=== PATIENT | female | born 1940 | race Caucasian/White ===

== ENCOUNTER 2018-05-09 10:28 | Emergency (ER) | payer MEDICARE ==
[~2018-05-09 10:28] MED LIST: AMLO-96 PO; AMLO2.5T75 PO; BENZ100C26 PO; BLOO-1322 MC; BLOO-1326 MC; BLOO1EAC MC; CHOL200022 PO; CLA500 PO; ESOM20CA31 PO; LANC-1149 MC; METR-1 PO; NO RTN MEDS; PENC5CRE TP; [UNRECOGNIZED DRUG - CODE] MC
--- NOTE | 2018-05-09 10:32 | ER Report ---
History and Physical Time Seen By MD: 10:33 HPI/ROS CHIEF COMPLAINT: Not feeling well HISTORY OF PRESENT ILLNESS: Patient is a 77-year-old female who presents to the emergency department with multiple complaints including just not feeling well, positional dyspnea, episodic palpitations no real chest pain or pressure. She reports some balance problems but no chest dizziness. It is unclear how long these symptoms have been present. Currently she has no chest pain or pressure. She does not feel palpitations now but they occur they only last for 1-2 minutes and then resolve spontaneously. Patient denies any headaches. She denies any prior history of cardiac disease or stroke. She denies any abdominal pain, nausea or vomiting. She denies any diarrhea. Patient denies any palliative or provoking features, however she does state that when the palpitations start if she arches her back this seems to make the symptoms better. Patient states that she has been staying with her sister over the past 2 weeks because she is concerned about dust in her trailer and that it might be affecting her causing her symptoms. REVIEW OF SYSTEMS: Constitutional: No fever, no chills. Eyes: No discharge. ENT: No sore throat. Cardiovascular: Palpitations Respiratory: No cough, positional shortness of breath Gastrointestinal: No abdominal pain, no vomiting. Genitourinary: No hematuria. Musculoskeletal: No back pain. Skin: No rashes. Neurological: No headache. Allergies: Coded Allergies: Penicillins (Verified Allergy, Mild, 01/16/11) peanut (Unverified Allergy, Mild, 03/11/15) sorbitol (Verified Allergy, Mild, 01/16/11) trimethoprim (Unverified Allergy, Mild, dizziness, nausea, 10/06/16) guaifenesin (Verified Allergy, Unknown, 05/09/18) sulfamethoxazole (Verified Adverse Reaction, Mild, dizziness, nausea, 10/06/16) Home Meds Active Scripts Blood-Glucose Control, Normal (ONE TOUCH VERIO) 1 Each Each, 1 EACH MC ONCE, #1 Use to test blood sugar once daily on rotating schedule Prov:MARK AGUILERA MD 09/16/17 Lancets (ONE TOUCH LANCETS) 1 Each Each, 1 EACH MC Q30D, #100 12 Refills Use to test blood sugars 1-2 times daily on rotating schedule. Prov:MARK AGUILERA MD 09/01/17 Blood Sugar Diagnostic (ONE TOUCH VERIO) 1 Each Strip, 1-2 EACH MC QDAY, #100 STRIP 11 Refills Use to test blood sugars 1-2 X daily on rotating schedule. Prov:MARK AGUILERA MD 04/22/17 Blood-Glucose Control, Normal (CONTROL SOLUTION) 1 Each Each, 1 EACH MC ONCE, #1 0 Refills Prov:MARK AGUILERA MD 11/02/16 Reported Medications Amlodipine Besylate (AMLODIPINE BESYLATE) 5 Mg Tablet, 1 TAB PO QDAY, #30 TAB 11 Refills 04/22/17 Cholecalciferol (Vitamin D3) (VITAMIN D) 2,000 Unit Tablet, 1 TAB PO QDAY, CAPSULE 1 tab po qod, alternating with 1 tab po qod 10/06/16 Past Medical/Surgical History Past medical history for hyperlipidemia, hypertension, type II diabetes, history of hysterectomy, carpal tunnel release Smoking Status: Never Smoker Exposure to Second Hand Smoke?: Yes Constitutional Vital Sign - Last 24 Hours 05/09/18 05/09/18 05/09/18 05/09/18 10:35 11:15 11:30 11:45 Temp 97.7 Pulse 116 113 120 111 Resp 18 15 19 16 B/P (MAP) 178/117 162/114 (130) 178/108 (131) 168/112 (130) Pulse Ox 94 93 93 90 O2 Delivery Room Air 05/09/18 12:15 Pulse 122 Resp 38 B/P (MAP) 192/112 (138) Pulse Ox 96 Physical Exam General Appearance: The patient is alert, has no immediate need for airway protection and no signs of toxicity. Eyes: Pupils equal and round no pallor or injection. ENT, Mouth: Mucous membranes are moist. Respiratory: There are no retractions, lungs are clear to auscultation. Cardiovascular: Regular rate and rhythm. Gastrointestinal: Abdomen is soft and non tender, no masses, bowel sounds normal. Neurological: Awake alert in no acute distress Skin: Warm and dry, no rashes. Musculoskeletal: Neck is supple non tender. Extremities are nontender, nonswollen and have full range of motion. Medical Decision Making Data Points Result Diagram: 05/09/18 1056 05/09/18 1056 Laboratory Hematology Test 05/09/18 10:56 05/09/18 11:28 05/09/18 12:33 Red Blood Count 5.49 M/uL (4.17-5.56) Mean Corpuscular Volume 90.3 fL (80.0-96.0) Mean Corpuscular Hemoglobin 31.0 pg (26.0-33.0) Mean Corpuscular Hemoglobin Concent 34.3 g/dL (32.0-36.0) Red Cell Distribution Width 12.6 % (11.5-14.5) Mean Platelet Volume 9.1 fL (7.2-11.1) Neutrophils (%) (Auto) 85.8 % (39.4-72.5) Lymphocytes (%) (Auto) 10.7 % (17.6-49.6) Monocytes (%) (Auto) 2.8 % (4.1-12.4) Eosinophils (%) (Auto) 0.1 % (0.4-6.7) Basophils (%) (Auto) 0.6 % (0.3-1.4) Nucleated RBC Relative Count (auto) 0.0 /100WBC Neutrophils # (Auto) 9.7 K/uL (2.0-7.4) Lymphocytes # (Auto) 1.2 K/uL (1.3-3.6) Monocytes # (Auto) 0.3 K/uL (0.3-1.0) Eosinophils # (Auto) 0.0 K/uL (0.0-0.5) Basophils # (Auto) 0.1 K/uL (0.0-0.1) Nucleated RBC Absolute Count (auto) 0.00 K/uL Prothrombin Time 12.8 seconds (12.0-14.4) Prothromb Time International Ratio 0.96 Activated Partial Thromboplast Time 27 seconds (23-35) D-Dimer Quantitative (PE/DVT) 0.31 ug/ml (0-0.50) Sodium Level 139 mmol/L (137-145) Potassium Level 3.8 mmol/L (3.5-5.0) Chloride Level 102 mmol/L (98-107) Carbon Dioxide Level 24 mmol/L (22-31) Blood Urea Nitrogen 21 mg/dl (7-18) Creatinine 0.70 mg/dl (0.52-1.04) Glomerular Filtration Rate Calc > 60.0 Random Glucose 343 mg/dl (75-110) Calcium Level 9.6 mg/dl (8.4-10.2) Total Bilirubin 0.6 mg/dl (0.2-1.3) Aspartate Amino Transf (AST/SGOT) 27 U/L (0-35) Alanine Aminotransferase (ALT/SGPT) 35 U/L (0-56) Alkaline Phosphatase 73 U/L (0-126) Troponin I 0.019 ng/ml B-Type Natriuretic Peptide 16 pg/ml (0-100) Total Protein 7.9 g/dl (6.3-8.2) Albumin 4.7 g/dl (3.5-5.0) Urine Color Straw Urine Clarity Clear Urine pH 6.0 pH (4.8-9.5) Urine Specific Moran 1.020 Urine Protein 30 mg/dL (NEGATIVE) Urine Glucose (UA) 500 mg/dL (NEGATIVE) Urine Ketones Trace mg/dL (NEGATIVE) Urine Blood Negative (NEGATIVE) Urine Nitrite Negative (NEGATIVE) Urine Bilirubin Negative (NEGATIVE) Urine Urobilinogen Negative mg/dL (0.2-1.9) Urine Leukocyte Esterase Negative (NEGATIVE) Urine RBC <1 /HPF (0-2/HPF) Urine WBC <1 /HPF (0-5/HPF) Urine Squamous Epithelial Cells None /LPF (</=FEW) Urine Bacteria Negative /HPF (NONE-FEW) Urine Mucus None /HPF (NONE-FEW) Whole Blood Glucose 261 mg/DL (75-110) Chemistry Test 05/09/18 10:56 05/09/18 11:28 05/09/18 12:33 White Blood Count 11.3 k/uL (4.5-11.0) Red Blood Count 5.49 M/uL (4.17-5.56) Hemoglobin 17.0 g/dL (12.0-16.0) Hematocrit 49.5 % (34.0-47.0) Mean Corpuscular Volume 90.3 fL (80.0-96.0) Mean Corpuscular Hemoglobin 31.0 pg (26.0-33.0) Mean Corpuscular Hemoglobin Concent 34.3 g/dL (32.0-36.0) Red Cell Distribution Width 12.6 % (11.5-14.5) Platelet Count 272 K/uL (150-450) Mean Platelet Volume 9.1 fL (7.2-11.1) Neutrophils (%) (Auto) 85.8 % (39.4-72.5) Lymphocytes (%) (Auto) 10.7 % (17.6-49.6) Monocytes (%) (Auto) 2.8 % (4.1-12.4) Eosinophils (%) (Auto) 0.1 % (0.4-6.7) Basophils (%) (Auto) 0.6 % (0.3-1.4) Nucleated RBC Relative Count (auto) 0.0 /100WBC Neutrophils # (Auto) 9.7 K/uL (2.0-7.4) Lymphocytes # (Auto) 1.2 K/uL (1.3-3.6) Monocytes # (Auto) 0.3 K/uL (0.3-1.0) Eosinophils # (Auto) 0.0 K/uL (0.0-0.5) Basophils # (Auto) 0.1 K/uL (0.0-0.1) Nucleated RBC Absolute Count (auto) 0.00 K/uL Prothrombin Time 12.8 seconds (12.0-14.4) Prothromb Time International Ratio 0.96 Activated Partial Thromboplast Time 27 seconds (23-35) D-Dimer Quantitative (PE/DVT) 0.31 ug/ml (0-0.50) Glomerular Filtration Rate Calc > 60.0 Calcium Level 9.6 mg/dl (8.4-10.2) Total Bilirubin 0.6 mg/dl (0.2-1.3) Aspartate Amino Transf (AST/SGOT) 27 U/L (0-35) Alanine Aminotransferase (ALT/SGPT) 35 U/L (0-56) Alkaline Phosphatase 73 U/L (0-126) Troponin I 0.019 ng/ml B-Type Natriuretic Peptide 16 pg/ml (0-100) Total Protein 7.9 g/dl (6.3-8.2) Albumin 4.7 g/dl (3.5-5.0) Urine Color Straw Urine Clarity Clear Urine pH 6.0 pH (4.8-9.5) Urine Specific Moran 1.020 Urine Protein 30 mg/dL (NEGATIVE) Urine Glucose (UA) 500 mg/dL (NEGATIVE) Urine Ketones Trace mg/dL (NEGATIVE) Urine Blood Negative (NEGATIVE) Urine Nitrite Negative (NEGATIVE) Urine Bilirubin Negative (NEGATIVE) Urine Urobilinogen Negative mg/dL (0.2-1.9) Urine Leukocyte Esterase Negative (NEGATIVE) Urine RBC <1 /HPF (0-2/HPF) Urine WBC <1 /HPF (0-5/HPF) Urine Squamous Epithelial Cells None /LPF (</=FEW) Urine Bacteria Negative /HPF (NONE-FEW) Urine Mucus None /HPF (NONE-FEW) Whole Blood Glucose 261 mg/DL (75-110) Coagulation Test 05/09/18 10:56 Prothrombin Time 12.8 seconds Prothromb Time International Ratio 0.96 Activated Partial Thromboplast Time 27 seconds D-Dimer Quantitative (PE/DVT) 0.31 ug/ml Urinalysis Test 05/09/18 11:28 Urine Color Straw Urine Clarity Clear Urine pH 6.0 pH (4.8-9.5) Urine Specific Moran 1.020 Urine Protein 30 mg/dL (NEGATIVE) Urine Glucose (UA) 500 mg/dL (NEGATIVE) Urine Ketones Trace mg/dL (NEGATIVE) Urine Blood Negative (NEGATIVE) Urine Nitrite Negative (NEGATIVE) Urine Bilirubin Negative (NEGATIVE) Urine Urobilinogen Negative mg/dL (0.2-1.9) Urine Leukocyte Esterase Negative (NEGATIVE) Urine RBC <1 /HPF (0-2/HPF) Urine WBC <1 /HPF (0-5/HPF) Urine Squamous Epithelial Cells None /LPF (</=FEW) Urine Bacteria Negative /HPF (NONE-FEW) Urine Mucus None /HPF (NONE-FEW) EKG/Imaging Monitor Interpretation: Sinus Tachycardia ED Course/Re-evaluation Clinical Indication for ER IV: IV Access ED Course 05/09/2018 12:06:05 pm patient with multiple complaints. Plan at this time will be cardiac workup including d-dimer. Because of her episodes of balance problems I did order a CT scan of the head patient refused. She also refused aspirin. She was agreeable to IV fluids based on physical exam findings and blood work that was consistent with some dehydration. She was found to have an elevated blood sugar. We will repeat her blood sugar after the fluid bolus. Disposition pending complete workup. 05/09/2018 12:35:24 pm repeat blood sugar 261 Decision to Disposition Date: May 09, 2018 Decision to Disposition Time: 12:35 Depart Departure Latest Vital Signs Vital Signs Date Time Temp Pulse Resp B/P (MAP) Pulse Ox O2 Delivery O2 Flow Rate FiO2 05/09/18 12:15 122 38 192/112 (138) 96 05/09/18 10:35 97.7 Room Air Impression: Primary Impression: Dehydration Additional Impression: Hyperglycemia Condition: Improved Disposition: HOME OR SELF-CARE Referrals: AMRK AGUILERA MD (PCP) Make an appointment with Dr. Poole in the next week to have your blood sugar rechecked and consider starting oral medications for hyperglycemia. Drink plenty of fluids Patient Instructions: Dehydration (DC), Diabetic Hyperglycemia (DC) Problem Qualifiers CHRISTINA TORRES MD May 09, 2018 10:32
[2018-05-09] MEDS: NS(*) 0.9% 500 ML BAG 500 ML IV ONE ×2 (10:56→11:14)
[2018-05-09] MEDS ORDERED: LORazepam 2 MG/ML VIAL IVP ONE (11:00)
[2018-05-09] MEDS ORDERED: ASPIRIN 81 MG CHEW PO ONE (11:00)
--- NOTE | 2018-05-09 11:00 | EKG ---
FACILITY: [facility] PATIENT NAME: MARK AMARAL : [id number] MR: [id number] V: [id number] EXAM DATE: ORDERING PHYSICIAN: CHRISTINA TORRES TECHNOLOGIST: ALEXA Test Reason : CHEST DISCOMFORT Blood Pressure : / mmHG Vent. Rate : 116 BPM Atrial Rate : 116 BPM P-R Int : 152 ms QRS Dur : 076 ms QT Int : 300 ms P-R-T Axes : 070 -17 052 degrees QTc Int : 417 ms Sinus tachycardia Possible Left atrial enlargement Poor R wave progression anteriorly Left axis Abnormal ECG No previous ECGs available Confirmed by NIKIA LAMA [id number] on 05/09/2018 7:25:01 PM Referred By: BRIAN Confirmed By:NIKIA LAMA
[2018-05-09 11:05] LABS: PLATELET COUNT, AUTOMATED 272 K/uL (150-450)
[2018-05-09 11:19] LABS: INR 0.96
[2018-05-09] MEDS ORDERED: NS(*) 0.9% 1000 ML BAG 1,000 ML IV ONE (11:40)
--- NOTE | 2018-05-09 11:46 | RADIOLOGY IMAGING REPORT ---
FACILITY: [facility] [place] PATIENT NAME: Nathan Kelsey : 1940 MR: [id number] V: [id number] EXAM DATE: ORDERING PHYSICIAN: CHRISTINA TORRES TECHNOLOGIST: Location: [facility] Patient: Nathan Kelsey : 1940 Visit/Account:[id number] Date of Sevice: 05/09/2018 CHEST PA AND LAT HISTORY: Intermittent chest pain over one month. COMPARISON: None FINDINGS: Cardiomediastinal contours: The heart size is normal. Lungs and pleura: There is no finding of an infiltrate, lymphadenopathy or pleural effusion. There is mild hyperinflation of the lungs. Bones/soft tissues: There are no findings of a fracture. IMPRESSION: Normal chest x-ray without findings of acute disease. Report Dictated By: Rory Mondragon MD at 05/09/2018 11:42 AM Report E-Signed By: Rory Mondragon MD at 05/09/2018 11:43 AM WSN:[id number]
[2018-05-09 12:15] VITALS: BP 192/112
== END 2018-05-09 12:40 | disposition home or self-care (01) ==
LOC: ER 10:43
DX: E86.0 Dehydration (principal); E11.65 Type 2 diabetes mellitus with hyperglycemia; R00.0 Tachycardia, unspecified
CPT/HCPCS: 36416; 71046; 81001; 82948; 83880; 84484; 85025; 85379; 85610; 85730; 93005; 96360; 99284; J7030; 82040; 82247; 82310; 82374; 82435; 82565; 82947; 84075; 84132; 84155; 84295; 84450; 84460; 84520; J7040

== ENCOUNTER → 2018-06-21 | Outpatient (CLI) | payer MEDICARE ==
[~2018-06-21] MED LIST changes: +AMLO-111 PO; -AMLO-96 PO; +AMLO2.5T76 PO; +CHOL200018 PO; -CHOL200022 PO; +FLU180SY11 IM; +METF-450 PO
--- NOTE | 2018-06-22 10:04 | RADIOLOGY IMAGING REPORT ---
FACILITY: [facility] PATIENT NAME: MARK AMARAL : [id number] MR: [id number] V: [id number] EXAM DATE: [id number] ORDERING PHYSICIAN: MARK AGUILERA TECHNOLOGIST: Jenny Rachel PROCEDURE:BILATERAL DIGITAL SCREENING MAMMOGRAM WITH CAD ASSISTED INTERPRETATION & 3D TOMOSYNTHESIS COMPARISON:Prior mammograms 08/26/16, 08/21/15, 01/18/14. INDICATIONS:SCREENING FINDINGS: Moderately heterogeneous fibroglandular tissue is seen throughout the breasts. The parenchymal pattern has remained stable allowing for difference in mammographic technique & patient positioning. There is no evidence of malignant appearing mass, malignant appearing calcifications or other secondary sign of malignancy in either breast. DIAGNOSTIC CATEGORY 1--NEGATIVE. RECOMMENDATIONS: ROUTINE MAMMOGRAM AND CLINICAL EVALUATION. IMPRESSION: BIRADS 1: Negative. No significant abnormality is seen. Dictated by: Meryl Bragg M.D. on 06/21/2018 at 15:07 Transcribed by: DELIA on 06/21/2018 at 15:20 Approved by: Meryl Bragg M.D. on 06/22/2018 at 10:03 [facility]
== END ==
LOC: MAMO 00:29
PROVIDERS: ATTEND Internal Medicine
DX: Z12.31 Encounter for screening mammogram for malignant neoplasm of breast (principal)
CPT/HCPCS: 77063; 77067